=== PATIENT | female | born 1965 | race Caucasian/White ===

== ENCOUNTER → 2016-12-05 | Outpatient (CLI) | payer BC ==
[2016-12-05 14:33] VITALS: BP 144/78; PULSE 73; TEMP 98.4; BMI 41.5
--- NOTE | 2016-12-05 15:48 | P.HPBAR ---
Bariatric H&P - History & Physicial H&P Date: 12/05/16 History & Physicial: Visit/CC: lap band fill Patient initial contact: Initial weight: 127.006 kg Initial weight in pounds: 280.00 Height: 5 ft 3 in Initial BMI: 49.6 Last weight: Current weight: 106.458 kg Current weight in pounds: 234.70 Current BMI: 41.5 [place] body weight (based on NIH guidelines): 52.163 kg Excess body weight loss: 27.4% The patient is a 51 year-old F who presents for Bariatric Assessment. The patient is requesting a fill of her LAP-BAND. She currently feels hungry. It has been several years since her last LAP-BAND adjustment. Past Medical History Past Medical History: Hyperlipidemia, Hypertension, Skin Disorder, Sleep Apnea/ CPAP/BIPAP Additional Past Medical History / Comment(s): heart murmer, psoriasis- rash on left leg, History of Any Multi-Drug Resistant Organisms: None Reported Past Surgical History: Bariatric Surgery, Section, Cholecystectomy, Tubal Ligation Additional Past Surgical History / Comment(s): lap band, Past Anesthesia/Blood Transfusion Reactions: Motion Sickness Past Psychological History: Anxiety, Depression Smoking Status: Former smoker Past Alcohol Use History: None Reported Additional Past Alcohol Use History / Comment(s): quit smoking 30 yrs ago, smoked 2 PPD for 8 years Past Drug Use History: None Reported - Past Family History Father Family Medical History: Cancer Surgical - Exam Vital Signs Temp Pulse BP 98.4 F 73 144/78 12/05/16 14:29 12/05/16 14:29 12/05/16 14:29 - General well developed, no distress - Eyes PERRL - ENT normal pinna - Neck no masses - Respiratory normal expansion - Cardiovascular Rhythm: regular - Abdomen Abdomen: soft, non tender Bariatric Assessment & Plan Plan: The patient's lap band was adjusted. She had 0.5 mL added to her LAP-BAND. She currently has 3 mL in her band. She was able drink water without difficulty. She'll follow-up in a month Bariatric Checklist Checklist: Plan: Checklist: EGD: 1. Hiatal hernia: 2. H. Pylori: HgbA1c: Vitamin D: Smoking: Former smoker Primary care physician referral: dr gonzalez Psychiatry clearance: Cardiology clearance: Sleep study: Diet journal: VTE risk score: VTE risk level: Rehab needs at discharge:
== END | disposition home or self-care (01) ==
LOC: BARWHC3 14:07
PROVIDERS: ATTEND Surgery
DX: Z48.815 Encounter for surgical aftercare following surgery on the digestive system (principal); Z98.84 Bariatric surgery status; Z68.41 Body mass index [BMI] 40.0-44.9, adult; G47.30 Sleep apnea, unspecified; Z99.89 Dependence on other enabling machines and devices; Z87.891 Personal history of nicotine dependence
CPT/HCPCS: 99212

== ENCOUNTER → 2017-03-06 | Outpatient (CLI) | payer BC ==
[2017-03-06 13:04] VITALS: BP 136/72; PULSE 67; RESP 16; TEMP 98.3; BMI 42.7
--- NOTE | 2017-03-06 13:56 | P.HPBAR ---
Bariatric H&P - History & Physicial H&P Date: 03/06/17 History & Physicial: Visit/CC: Adj Patient initial contact: Initial weight: 127.006 kg Initial weight in pounds: 280.00 Height: 5 ft 3 in Initial BMI: 49.6 Last weight: Current weight: 109.514 kg Current weight in pounds: 241.00 Current BMI: 42.7 [place] body weight (based on NIH guidelines): 52.163 kg Excess body weight loss: 23.6% The patient is a 51 year-old F who presents for Bariatric Assessment. The patient some complaints hunger. She is actually gained a few pounds. She is requesting a fill of her LAP-BAND. Past Medical History Past Medical History: Hyperlipidemia, Hypertension, Skin Disorder, Sleep Apnea/ CPAP/BIPAP Additional Past Medical History / Comment(s): heart murmer, psoriasis- rash on left leg, History of Any Multi-Drug Resistant Organisms: None Reported Past Surgical History: Bariatric Surgery, Section, Cholecystectomy, Tubal Ligation Additional Past Surgical History / Comment(s): lap band, Past Anesthesia/Blood Transfusion Reactions: Motion Sickness Past Psychological History: Anxiety, Depression Smoking Status: Former smoker Past Alcohol Use History: None Reported Additional Past Alcohol Use History / Comment(s): quit smoking 30 yrs ago, smoked 2 PPD for 8 years Past Drug Use History: None Reported - Past Family History Father Family Medical History: Cancer Surgical - Exam Vital Signs Temp Pulse Resp BP 98.3 F 67 16 136/72 03/06/17 13:02 03/06/17 13:02 03/06/17 13:02 03/06/17 13:02 - General well developed, no distress - Eyes PERRL - ENT normal pinna, no hearing loss - Neck no masses - Abdomen Abdomen: soft, non tender Bariatric Assessment & Plan Plan: Patient's lap band was adjusted. She had 0.3 mL added to her LAP-BAND. She currently has 3.3 mL in the band. She will follow-up in one month. She was able require without difficulty. Bariatric Checklist Checklist: Plan: Checklist: EGD: 1. Hiatal hernia: 2. H. Pylori: HgbA1c: Vitamin D: Smoking: Former smoker Primary care physician referral: dr gonzalez Psychiatry clearance: Cardiology clearance: Sleep study: Diet journal: VTE risk score: VTE risk level: Rehab needs at discharge:
== END | disposition home or self-care (01) ==
LOC: BARWHC3 12:53
PROVIDERS: ATTEND Surgery
DX: Z48.815 Encounter for surgical aftercare following surgery on the digestive system (principal); E78.5 Hyperlipidemia, unspecified; I10 Essential (primary) hypertension; G47.30 Sleep apnea, unspecified; Z87.891 Personal history of nicotine dependence; Z98.84 Bariatric surgery status
CPT/HCPCS: 99212

== ENCOUNTER → 2018-10-01 | Outpatient (CLI) | payer BC ==
[2018-10-01 14:51] VITALS: BP 132/69; PULSE 64; TEMP 97.8; BMI 41.2
--- NOTE | 2018-10-01 15:49 | P.HPBAR ---
Bariatric H&P - History & Physicial H&P Date: 10/01/18 History & Physicial: Visit/CC: band fill Patient initial contact: Initial weight: 127.006 kg Initial weight in pounds: 280.00 Height: 5 ft 3 in Initial BMI: 49.6 Last weight: Current weight: 105.642 kg Current weight in pounds: 232.90 Current BMI: 41.2 [place] body weight (based on NIH guidelines): 52.163 kg Excess body weight loss: 28.5% The patient is a 53 year-old F who presents for Bariatric Assessment. Patient presents today for lab band follow up. She has quite a hunger is requesting a fill. Past Medical History Past Medical History: Hyperlipidemia, Hypertension, Skin Disorder, Sleep Apnea/ CPAP/BIPAP Additional Past Medical History / Comment(s): heart murmer, psoriasis- rash on left leg, History of Any Multi-Drug Resistant Organisms: None Reported Past Surgical History: Bariatric Surgery, Section, Cholecystectomy, Tubal Ligation Additional Past Surgical History / Comment(s): lap band 2004 Past Anesthesia/Blood Transfusion Reactions: Motion Sickness Past Psychological History: Anxiety, Depression Smoking Status: Former smoker Past Alcohol Use History: None Reported Additional Past Alcohol Use History / Comment(s): quit smoking 30 yrs ago, smoked 2 PPD for 8 years Past Drug Use History: None Reported - Past Family History Father Family Medical History: Cancer Surgical - Exam Vital Signs Temp Pulse BP 97.8 F 64 132/69 10/01/18 14:45 10/01/18 14:45 10/01/18 14:45 - General well developed, no distress - Abdomen Abdomen: soft, non tender Bariatric Assessment & Plan Plan: Patient LAP-BAND was adjusted. She had 0.2 mL added to her band. She is 3.5 mL in the band. She'll follow-up in 4 weeks. Bariatric Checklist Checklist: Plan: Checklist: EGD: 1. Hiatal hernia: 2. H. Pylori: HgbA1c: Vitamin D: Smoking: Former smoker Primary care physician referral: [employer]ATOR, Kim Delgadillo ([place], [place]) Psychiatry clearance: Cardiology clearance: Sleep study: Diet journal: VTE risk score: VTE risk level: Rehab needs at discharge:
== END | disposition home or self-care (01) ==
LOC: BARWHC3 13:41
PROVIDERS: ATTEND Surgery
DX: Z48.815 Encounter for surgical aftercare following surgery on the digestive system (principal); F41.9 Anxiety disorder, unspecified; F32.9 Major depressive disorder, single episode, unspecified; Z87.891 Personal history of nicotine dependence; Z90.49 Acquired absence of other specified parts of digestive tract; Z98.890 Other specified postprocedural states; Z98.84 Bariatric surgery status
CPT/HCPCS: 99212